=== PATIENT | male | born 1995 | race Caucasian/White ===

== ENCOUNTER 2025-05-03 10:29 | Emergency (ER) | payer MEDICAID, OTHER ==
[~2025-05-03] VITALS: Ht 188 cm; Wt 77.1 kg
[2025-05-03 11:21] VITALS: BP 122/69; TEMP 97.9; O2SAT 97
== END 2025-05-03 11:21 | disposition home or self-care (01) ==
LOC: ER 10:29
DX: Z00.00 Encounter for general adult medical examination without abnormal findings (principal); Z76.0 Encounter for issue of repeat prescription; Z60.2 Problems related to living alone